=== PATIENT | male | born 1965 | race Caucasian/White ===

== ENCOUNTER 2016-11-24 22:59 | Emergency (ER) | payer BC ==
[~2016-11-24] VITALS: Ht 182.9 cm; Wt 98.9 kg
--- NOTE | 2016-11-24 23:22 | NUR ---
Dr. Tesfaye evaluating patient
[2016-11-24 23:26] VITALS: BP 133/83
--- NOTE | 2016-11-24 23:28 | NUR ---
PT TAKEN TO [facility]
--- NOTE | 2016-11-24 23:54 | NUR ---
51Y M BIB FAMILY C/O DIAZ X 2 HOURS, CONSTANT THROBBING PAIN 5/10 PAIN SCALE. PT DENIES ANY N/V/D, SOB, CP AT THE MOMENT. PT BREATHING IS UNLABORED AND CLEAR BILAT. PT IS AAOX4. DENIES ANY ALLERGIES AND ONLY MEDICAL HX IS HEART ANGIOPLASTY DONE IN 03/2016.
--- NOTE | 2016-11-24 23:54 | NUR ---
PT MOVED TO BED 5
[2016-11-25 00:03] LABS: BASOPHILS # (AUTO) 0.2 K/uL (0.00-0.22); BASOPHILS % (AUTO) 2.6 % (0.0-2.0); EOSINOPHILS # (AUTO) 0.2 K/uL (0-0.4); EOSINOPHILS % (AUTO) 2.8 % (0.0-4.0); HEMATOCRIT 42.6 % (36-52); HEMOGLOBIN 14.2 g/dL (12.0-18.0); LYMPHOCYTES # (AUTO) 1.7 K/uL (2.0-11.5); LYMPHOCYTES % (AUTO) 21.5 % (20.5-51.1); MEAN CORPUSCULAR HEMOGLOBIN 28 pg (27-31); MEAN CORPUSCULAR HGB CONC 33 g/dL (33-37); MEAN CORPUSCULAR VOLUME 85 fL (80-94); MONOCYTES # (AUTO) 0.6 K/uL (0.8-1.0); MONOCYTES % (AUTO) 8.1 % (1.7-9.3); NEUTROPHILS # (AUTO) 5.2 K/uL (1.8-7.7); PLATELET COUNT (AUTO) 150 K/uL (140-450); RED BLOOD CELL COUNT(AUTO) 5.02 MIL/uL (4.20-6.10); RED CELL DISTRIBUTION WIDTH 12.4 % (11.6-13.7); WHITE BLOOD COUNT (AUTO) 7.9 K/uL (4.8-10.8)
[2016-11-25 00:09] LABS: ANION GAP 11.5 (8-16); CARBON DIOXIDE 27.2 mmol/L (21-32); POTASSIUM 3.7 mmol/L (3.5-5.1)
[2016-11-25 00:10] LABS: CALCIUM 8.8 mg/dL (8.5-10.1); CREATININE 1.5 mg/dL (0.7-1.3)
[2016-11-25 00:12] LABS: ALBUMIN 3.6 g/dL (3.4-5.0); TOTAL BILIRUBIN 0.2 mg/dL (0.0-1.0); TOTAL PROTEIN, SERUM 7.4 g/dL (6.4-8.2)
[2016-11-25 00:19] LABS: CREATINE KINASE MB 0.4 ng/mL (0-3.6); CREATINE KINASE, TOTAL 147 U/L (39-308); TROPONIN I < 0.017 ng/mL (0.00-0.06)
[2016-11-25] MEDS ORDERED: KETOROLAC 60 MG/2 ML VIAL IM ONE (01:05)
--- NOTE | 2016-11-25 01:15 | NUR ---
Patient discharged with v/s stable BY ER MD DR WOOD. Written and verbal after care instructions given and explained BY ER MD DR WOOD . Patient verbalized understanding. Ambulatory with steady gait. All questions addressed prior to discharge BY ER MD DR WOOD . Advised to follow up with PMD.
[2016-11-25 01:16] VITALS: BP 124/79
== END 2016-11-25 01:15 | disposition home or self-care (01) ==
LOC: MED 22:59
DX: G44.009 Cluster headache syndrome, unspecified, not intractable (principal); R94.31 Abnormal electrocardiogram [ECG] [EKG]; I25.2 Old myocardial infarction; E78.5 Hyperlipidemia, unspecified
CPT/HCPCS: 36415; 70450; 80053; 82550; 82553; 83880; 84484; 85025; 93005; 96372; 99285; J1885

== ENCOUNTER 2023-10-26 12:29 | Emergency (ER) | payer BC ==
[~2023-10-26] VITALS: Ht 182.9 cm; Wt 93.6 kg
[2023-10-26 12:34] VITALS: BP 112/80; PULSE 85; RESP 16; TEMP 97.1; O2SAT 99
[2023-10-26] MEDS: KETOROLAC 30 MG/ML VIAL IM ONE (13:11)
[2023-10-26] MEDS ORDERED: LOTRC TP (13:24)
[2023-10-26] MEDS ORDERED: LID5T TP (13:24)
[2023-10-26] MEDS ORDERED: NAPR-337 PO (13:24)
[2023-10-26] MEDS ORDERED: FLUC100T PO (13:24)
[2023-10-26 13:34] VITALS: BP 112/80; PULSE 85; RESP 16; TEMP 97.1; O2SAT 99
== END 2023-10-26 13:34 | disposition home or self-care (01) ==
LOC: MED 12:29
DX: M25.511 Pain in right shoulder (principal); B35.6 Tinea cruris; E78.5 Hyperlipidemia, unspecified; Z79.1 Long term (current) use of non-steroidal anti-inflammatories (NSAID); Z79.899 Other long term (current) drug therapy
CPT/HCPCS: 73030; 96372; 99283; J1885